=== PATIENT | female | born 1950 | race Caucasian/White ===

== ENCOUNTER 2018-12-13 01:06 | Emergency (ER) | payer OTHER ==
[~2018-12-13] VITALS: Ht 157.5 cm; Wt 77.1 kg
[2018-12-13 03:18] VITALS: BP 138/56
[2018-12-13] MEDS ORDERED: methylPREDNISolone SOD SUCC 125 MG/2 ML VL IM ONE (03:45)
[2018-12-13] MEDS ORDERED: ALBUTEROL SULF 2.5 MG/0.5ML(0.5%) NEB SOLN NEB ONE (04:00)
[2018-12-13] MEDS ORDERED: IPRATROPIUM BROM 0.5 MG/2.5ML INH SOL NEB ONE (04:00)
== END 2018-12-13 04:48 | disposition home or self-care (01) ==
LOC: ER 01:09
DX: J40 Bronchitis, not specified as acute or chronic (principal); M32.9 Systemic lupus erythematosus, unspecified; R60.9 Edema, unspecified; I10 Essential (primary) hypertension; M19.90 Unspecified osteoarthritis, unspecified site
CPT/HCPCS: 71046; 93005; 94640; 96372; 99283; J2930; J7611; J7644